=== PATIENT | male | born 1940 | race Caucasian/White ===

== ENCOUNTER 2019-07-03 17:34 | Outpatient (CLI) | payer MEDICARE ==
[~2019-07-03 17:34] MED LIST: DIAZ5TAB PO; FLUO20TA25 PO; HYDR25TA6 PO; OXYC-302 PO; PANT40TA5 PO; RANI150C PO; TOLN15CR TP; VALS80TA3 PO
== END 2019-07-03 23:59 | disposition home or self-care (01) ==
LOC: RAD 17:34
PROVIDERS: ATTEND Nurse Practitioner
DX: S40.021A Contusion of right upper arm, initial encounter (principal); R60.9 Edema, unspecified; X58.XXXA Exposure to other specified factors, initial encounter; Y93.89 Activity, other specified; Y92.89 Other specified places as the place of occurrence of the external cause; Y99.8 Other external cause status